=== PATIENT | male | born 1965 | race Caucasian/White ===

== ENCOUNTER 2021-08-26 08:47 | Emergency (ER) | payer BC ==
[~2021-08-26 08:47] MED LIST: ELIQUIS5 MG PO; NORCO 5-325 TA1 EACH PO
[2021-08-26 12:29] LABS: HEMOGLOBIN 13.8 gm/dl (14.0-17.5); RED BLOOD COUNT 4.49 M/UL (4.20-5.50); WHITE BLOOD COUNT 7.8 K/UL (4.5-11.0)
[2021-08-26 13:01] LABS: BUN/CREATININE RATIO 15 (0-10)
[2021-08-26] MEDS ORDERED: ELIQUIS5 MG PO (14:21)
== END 2021-08-26 14:40 | disposition home or self-care (01) ==
LOC: ER1 08:47
PROVIDERS: Physician Assistant Medical
DX: I82.412 Acute embolism and thrombosis of left femoral vein (principal); I82.432 Acute embolism and thrombosis of left popliteal vein; I82.442 Acute embolism and thrombosis of left tibial vein; Z79.82 Long term (current) use of aspirin; R23.0 Cyanosis
CPT/HCPCS: 80053; 85025; 85379; 85610; 85730; 93971; 99284